=== PATIENT | female | born 1955 | race Caucasian/White ===

== ENCOUNTER 2019-03-27 11:42 | Emergency (ER) | payer OTHER, BC, SELFPAY ==
[2019-03-27 11:44] VITALS: BP 175/118; RESP 18; TEMP 36.4; O2SAT 99; BMI 19.3
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
[2019-03-27] MEDS: Morphine 4 MG/ML Syringe SC (11:56)
--- NOTE | 2019-03-27 12:12 | RAD_ITS ---
STUDY: X-RAY - PELVIS AND LEFT HIP REASON FOR EXAM: Hip pain and limited range of motion after a fall 4 days ago. TECHNIQUE: 2 views of the pelvis and hip. COMPARISON: None. FINDINGS: Normal visualized soft tissue structures. Normal bilateral iliac wings, sacroiliac joints and visualized sacrum. There is a chronic healed fracture deformity of the left inferior pubic ramus and left parasymphyseal bone. Normal pubic symphysis. Normal bilateral ischial tuberosities. Normal visualized femoral head. Normal acetabulum. There is mild joint space narrowing of the superior medial left hip joint. RAD/HIP, UNI W/ Pelvis 2-3 Views IMPRESSION: Chronic healed fracture deformity of the left obturator ring without demonstrated recent fracture. Mild left hip arthrosis. Electronically Signed: Guillermo Minor MD at 12:46 EST Tel , Service support ,
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
[2019-03-27 14:22] VITALS: BP 131/87; PULSE 61; RESP 18; O2SAT 95
--- NOTE | 2019-03-27 15:27 | ED.DEP ---
ED Disposition - Plan for ED Patient: Instructions: Pelvic Fracture Prescriptions: Oxycodone HCl/Acetaminophen [Percocet 5/325] 1 tab PO Q6H PRN PRN 3 Days #12 tab PRN Reason: Pain Prescription Printed Referrals: Lex Monterroso MD [STAFF PHYSICIAN] - (1-2 weeks)
[2019-03-27 15:31] VITALS: PULSE 65; RESP 18
== END 2019-03-27 15:32 | disposition home or self-care (01) ==
LOC: ED 12:08
PROVIDERS: Emergency Provider Emergency Medicine
DX: S32.592A Other specified fracture of left pubis, initial encounter for closed fracture (principal); W00.0XXA Fall on same level due to ice and snow, initial encounter; Y93.9 Activity, unspecified; Y92.89 Other specified places as the place of occurrence of the external cause; Y99.9 Unspecified external cause status; Z72.0 Tobacco use; R05 Cough
CPT/HCPCS: 72192; 73502; 96372; 99284

== ENCOUNTER 2019-08-28 09:18 | Emergency (ER) | payer MEDICARE, SELFPAY ==
[2019-08-28 09:19] VITALS: BP 153/101; PULSE 109; RESP 18; TEMP 37; O2SAT 96; BMI 19.5
--- NOTE | 2019-08-28 09:31 | RAD_ITS ---
STUDY: X-RAY - BILATERAL RIBS WITH CHEST REASON FOR EXAM: Female, 64 years old. INJURY RT SIDE RIB BRUISING AND PAIN TECHNIQUE - RIBS: 4 view(s) of the ribs. TECHNIQUE - CHEST: Single PA view of the chest. COMPARISON: None. FINDINGS - RIBS : Normal visualized ribs without a demonstrated fracture. FINDINGS - CHEST: Hyperinflation. Mild increased linear markings at the lung bases suggestive of scarring. Mild increased biapical markings suggestive of scarring. There is no demonstrated pleural abnormality. Normal size heart. Normal mediastinum and carlos. Normal visualized pulmonary arteries. There is atherosclerotic calcification of the aortic arch with tortuosity. There are diffuse degenerative changes of the visualized thoracic spine. Mild dextroscoliosis. Normal visualized ribs, clavicles, and shoulders. There is no demonstrated abnormality of the visualized soft tissue structures of the upper abdomen. RAD/Ribs Kaleb Min 4V w/PA Chest IMPRESSION: RIBS: Normal x-ray examination of the bilateral ribs. CHEST: Normal x-ray examination of the chest. Electronically Signed: Jj Huang, at 10:23 EDT , Service support ,
[2019-08-28] MEDS: oxyCODONE 5 MG Tablet PO (10:31)
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
== END 2019-08-28 10:49 | disposition home or self-care (01) ==
PROVIDERS: Emergency Provider Emergency Medicine
DX: S20.219A Contusion of unspecified front wall of thorax, initial encounter (principal); F17.200 Nicotine dependence, unspecified, uncomplicated; W17.89XA Other fall from one level to another, initial encounter; Y93.89 Activity, other specified; Y92.410 Unspecified street and highway as the place of occurrence of the external cause; Y99.8 Other external cause status
CPT/HCPCS: 71111; 99284

== ENCOUNTER → 2020-03-14 08:13 | Outpatient (CLI) | payer MEDICARE, SELFPAY ==
[2020-03-14 10:23] LABS: ALB/GLOB Ratio 1.1 RATIO (0.9-2.4); AST(SGOT) 16 U/L (15-37); Alanine Aminotransfer ALT/SGPT 25 U/L (13-56); Alkaline Phosphatase 87 U/L (45-117); Anion Gap 6 (5-15); BUN 10 mg/dL (7-18); BUN/Creat Ratio 13.3 RATIO (10-20); Calcium,Total 9.1 mg/dL (8.5-10.1); Chloride 108 mmol/L (98-107); Creatinine, Serum 0.75 mg/dL (0.55-1.02); EST Glomerular Filtration Rate 82 mL/min (>60); Est Glom Filt Rate - Afr Amer 99 mL/min (>60); Globulin 3.7 g/dL (2.2-4.2); Glucose 97 mg/dL (74-106); Protein, Total 7.7 g/dL (6.4-8.2); Sodium Level 141 mmol/L (136-145)
== END ==
PROVIDERS: PCP Family Medicine; Referring Provider Family Medicine; Visit Provider Family Medicine
DX: R73.01 Impaired fasting glucose (principal); Z13.220 Encounter for screening for lipoid disorders
CPT/HCPCS: 36415; 80053; 80061

== ENCOUNTER → 2020-11-28 08:43 | Outpatient (CLI) | payer MEDICARE, SELFPAY ==
[2020-11-28 10:02] LABS: Absolute Lymphocyte Count 2.67 X10^3/uL (0.83-4.51); Absolute Neutrophil Count 3.5 X10^3/uL (2.0-7.7); Basophil# 0.06 X10^3/uL; Basophil% 0.8 % (0-1); Eosinophil# 0.16 X10^3/uL; Eosinophils% 2.2 % (0-5); Hematocrit 43.5 % (37-47); Hemoglobin 14.5 g/dL (12.0-15.0); Lymphocyte # 2.67 X10^3/ul (0.83-4.51); Lymphocyte % 37.3 % (19-41); Mean Corp Hgb Conc 33.3 g/dL (32-36); Mean Corpuscular Hgb 31.7 pg (27.0-32.0); Mean Platelet Vol. 9.2 fl (6.2-12.0); Monocyte# 0.74 X10^3/uL; Monocyte% 10.3 % (0-10); NRBC Flagged by Analyzer 0 % (0-5); Neutrophil # 3.51 X10^3/uL (2.7-7.7); Neutrophil % 49.1 % (47-70); Platelet Count 269 K/mm3 (150-450); RBC Distribution Width CV 12.9 % (11.6-14.6); RBC Distribution Width SD 45.1 fl (35.1-43.9); Red Blood Count 4.58 M/mm3 (4.2-5.4); White Blood Count 7.2 K/mm3 (4.4-11.0)
[2020-11-28 10:37] LABS: ALB/GLOB Ratio 0.9 RATIO (0.9-2.4); AST(SGOT) 20 U/L (15-37); Alanine Aminotransfer ALT/SGPT 28 U/L (13-56); Albumin, Serum 3.8 g/dL (3.2-5.0); Alkaline Phosphatase 73 U/L (45-117); Anion Gap 5 (5-15); BUN 11 mg/dL (7-18); BUN/Creat Ratio 14.5 RATIO (10-20); Calcium,Total 9.2 mg/dL (8.5-10.1); Chloride 102 mmol/L (98-107); Cholesterol 209 mg/dL (200); Creatinine, Serum 0.76 mg/dL (0.55-1.02); EST Glomerular Filtration Rate 81 mL/min (>60); Est Glom Filt Rate - Afr Amer 98 mL/min (>60); Globulin 4.2 g/dL (2.2-4.2); Glucose 102 mg/dL (74-106); High Density Lipoprotein 66 mg/dL; Potassium 3.8 mmol/L (3.5-5.1); Sodium Level 137 mmol/L (136-145); Triglycerides 94 mg/dL; Very Low Density Lipoprotein 19 mg/dL (5-40)
== END ==
PROVIDERS: PCP Family Medicine; Referring Provider Family Medicine; Visit Provider Family Medicine
DX: Z79.899 Other long term (current) drug therapy (principal)
CPT/HCPCS: 36415; 80053; 80061; 85025

== ENCOUNTER 2022-03-02 12:00 | Emergency (ER) | payer MEDICARE, SELFPAY ==
[2022-03-02 12:01] VITALS: BP 104/88; PULSE 95; RESP 18; TEMP 36.6; O2SAT 94; BMI 22.8
--- NOTE | 2022-03-02 13:11 | CT_ITS ---
STUDY: CT BRAIN WITHOUT CONTRAST REASON FOR EXAM: Female, 66 years old. injury RADIATION DOSAGE (If Supplied By Facility): CTDIvol = ( 44.99 ) mGy, DLP = ( 812.98 ) mGycm TECHNIQUE: Transaxial CT imaging of the brain was performed without administration of intravenous contrast material. Individualized dose optimization techniques were used for this CT. COMPARISON: No relevant priors. FINDINGS: Normal soft tissue structures. Normal calvarium. Normal size ventricles and extra-axial spaces for the patient''s age. Normal white matter tracts of the cerebral hemispheres. Normal basal ganglia and thalami. Normal brainstem. Normal cerebellum. There is no intracranial hemorrhage. There are no findings of an acute ischemic infarction. Normal visualized paranasal sinuses. CT/Brain/Head without Contrast IMPRESSION: Normal unenhanced CT scan of the brain. Electronically Signed: Timi Alegre MD at 14:07 EST ,
--- NOTE | 2022-03-02 13:11 | RAD_ITS ---
STUDY: X-RAY - RIGHT KNEE REASON FOR EXAM: Female, 66 years old. injury TECHNIQUE: 4 view(s) of the knee. COMPARISON: None. FINDINGS: Normal visualized distal femur. Normal visualized proximal tibia and fibula. Normal proximal tibiofibular articulation. Normal medial femorotibial compartment. Normal lateral femorotibial compartment. Normal patellofemoral articulation. The soft tissue structures are unremarkable. RAD/Knee 4 or More Views IMPRESSION: Normal x-ray examination of the knee. Electronically Signed: Timi Alegre MD at 14:24 EST ,
--- NOTE | 2022-03-02 13:11 | RAD_ITS ---
STUDY: X-RAY - RIGHT SHOULDER REASON FOR EXAM: Female, 66 years old. injury TECHNIQUE: 2 view(s) of the shoulder. COMPARISON: None. FINDINGS: Normal glenohumeral articulation. Normal acromioclavicular joint. Normal acromion. Normal humeral head and visualized proximal humerus. The soft tissue structures are unremarkable. Normal visualized pulmonary apex. RAD/Shoulder min 2 Views IMPRESSION: Normal x-ray examination of the shoulder. Electronically Signed: Timi Alegre MD at 14:19 EST ,
--- NOTE | 2022-03-02 13:11 | RAD_ITS ---
STUDY: X-RAY - LEFT WRIST REASON FOR EXAM: Female, 66 years old. injury TECHNIQUE: 3 view(s) of the wrist were obtained. COMPARISON: None. FINDINGS: Normal visualized distal radius and ulna. Normal radiocarpal articulation. Normal distal radioulnar articulation. Normal carpal bones. Normal carpal articulations. Normal carpometacarpal articulation of the thumb. Normal second through fifth carpometacarpal articulations. Normal visualized metacarpal bones. The soft tissue structures are unremarkable. RAD/Wrist min 3 Views IMPRESSION: Normal x-ray examination of the wrist. Electronically Signed: Timi Alegre MD at 14:27 EST ,
[2022-03-02 14:00] VITALS: BP 134/78; PULSE 78; RESP 16; O2SAT 98
--- NOTE | 2022-03-02 14:00 | RAD_ITS ---
STUDY: X-RAY - RIGHT HAND REASON FOR EXAM: Female, 66 years old. injury TECHNIQUE: 3 view(s) of the hand. COMPARISON: None. FINDINGS: Normal radiocarpal articulation. Normal distal radioulnar joint. Normal visualized carpal bones. Normal carpal articulations There is degenerative arthrosis of the carpometacarpal (CMC) articulation of the thumb. Normal second through fifth carpometacarpal joints. Normal metacarpi. Normal metacarpophalangeal joint of the thumb. Normal interphalangeal joint of the thumb. Normal proximal and distal phalanges of the thumb. Normal metacarpophalangeal joints of the second through fifth fingers. Normal proximal and distal interphalangeal joints of the second through fifth fingers. Normal phalanges of the second through fifth fingers. The soft tissue structures are unremarkable. RAD/Hand Min 3 Views IMPRESSION: Normal x-ray examination of the hand. Electronically Signed: Timi Alegre MD at 14:22 [facility] ,
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
== END 2022-03-02 14:42 | disposition home or self-care (01) ==
PROVIDERS: Emergency Provider Emergency Medicine; PCP Family Medicine; Visit Provider Emergency Medicine
DX: S00.83XA Contusion of other part of head, initial encounter (principal); S60.221A Contusion of right hand, initial encounter; S80.01XA Contusion of right knee, initial encounter; S60.212A Contusion of left wrist, initial encounter; F17.210 Nicotine dependence, cigarettes, uncomplicated; W10.1XXA Fall (on)(from) sidewalk curb, initial encounter
CPT/HCPCS: 70450; 73030; 73110; 73130; 73564; 99282

== ENCOUNTER → 2023-05-13 | Outpatient (CLI) | payer MEDICARE, SELFPAY ==
--- NOTE | 2023-05-13 09:50 | RAD_ITS ---
INDICATION: sob EXAMINATION/TECHNIQUE: X-RAY - XR Chest 2 Views COMPARISON: No previous relevant examinations available for comparison.. FINDINGS: LIFE-SUPPORT AND LINES: 1. None HEART AND VESSELS: The cardiac silhouette, pulmonary vasculature have normal appearance. No evidence of congestive failure. LUNGS AND PLEURAL SPACES: Lungs are hyperexpanded. No infiltrate consolidation or effusion. No pulmonary mass is noted. MEDIASTINUM AND HILAR REGIONS: No masses adenopathy noted. No areas of calcification. Visualized upper airway is normal in position. BONY ELEMENTS: No acute bony changes noted. Diffuse chronic thoracic spondylosis. No acute fractures noted. RAD/Chest PA and Lateral IMPRESSION: 1. Pulmonary hyperexpansion. 2. No parenchymal infiltrate consolidation or effusion. 3. No evidence of congestive failure. Electronically Signed: Timi Padilla MD at 18:11 EST ,
[2023-05-13 10:28] LABS: Hematocrit 43.6 % (37-47); Hemoglobin 14.3 g/dL (12.0-15.0); Mean Corp Hgb Conc 32.8 g/dL (32-36); Mean Corpuscular Hgb 30.2 pg (27.0-32.0); Mean Corpuscular Volume 92.2 fL (81-99); Mean Platelet Vol. 9.2 fl (6.2-12.0); Platelet Count 291 K/mm3 (150-450); RBC Distribution Width SD 44.4 fl (35.1-43.9); Red Blood Count 4.73 M/mm3 (4.2-5.4); White Blood Count 7.1 K/mm3 (4.4-11.0)
[2023-05-13 11:20] LABS: Hemoglobin A1c 5.8 % (3.8-5.6)
[2023-05-13 11:43] LABS: AST(SGOT) 21 U/L (15-37); Alanine Aminotransfer ALT/SGPT 26 U/L (13-56); Albumin, Serum 3.9 g/dL (3.2-5.0); Alkaline Phosphatase 93 U/L (45-117); Anion Gap 6 (5-15); BUN 10 mg/dL (7-18); BUN/Creat Ratio 12.5 RATIO (10-20); Calcium,Total 9.6 mg/dL (8.5-10.1); Chloride 105 mmol/L (98-107); Cholesterol 185 mg/dL (200); EST Glomerular Filtration Rate 76 mL/min (>60); Est Glom Filt Rate - Afr Amer 92 mL/min (>60); Ferritin 120 ng/mL (8-252); Globulin 3.9 g/dL (2.2-4.2); Glucose 110 mg/dL (74-106); High Density Lipoprotein 59 mg/dL; Potassium 3.8 mmol/L (3.5-5.1); Protein, Total 7.8 g/dL (6.4-8.2); Sodium Level 137 mmol/L (136-145); Thyroid Stim Hormone (TSH) 0.29 uIU/mL (0.358-3.74); Triglycerides 79 mg/dL; Very Low Density Lipoprotein 16 mg/dL (5-40)
[2023-05-13 11:45] LABS: Microalbumin,Random Urine 7.4 mg/L (NO RANGE EST.)
== END | disposition home or self-care (01) ==
PROVIDERS: PCP Family Medicine; Referring Provider Family Medicine; Visit Provider Family Medicine
DX: R06.02 Shortness of breath (principal); E78.5 Hyperlipidemia, unspecified; I10 Essential (primary) hypertension; R73.01 Impaired fasting glucose
CPT/HCPCS: 36415; 71046; 80053; 80061; 82043; 82570; 82728; 83036; 84443; 85027; 94060; 94726; 94729

== ENCOUNTER → 2023-05-27 | Outpatient (CLI) | payer MEDICARE, SELFPAY ==
[2023-05-27 11:03] LABS: Free T3 3.1 pg/mL (2.18-3.98); Thyroid Stim Hormone (TSH) 0.22 uIU/mL (0.358-3.74)
== END | disposition home or self-care (01) ==
LOC: MTLAB 09:14
PROVIDERS: PCP Family Medicine; Referring Provider Family Medicine; Visit Provider Family Medicine
DX: R94.6 Abnormal results of thyroid function studies (principal)
CPT/HCPCS: 36415; 84443; 84481

== ENCOUNTER → 2023-06-24 | Outpatient (CLI) | payer MEDICARE, SELFPAY ==
[2023-06-26 06:09] LABS: Anti-Thyroglobulin AB < 1.0 IU/mL (0.0-0.9); Thyroglobulin, Serum Qt. 43.5 ng/mL (1.5-38.5); Thyroid Peroxidase AB < 9 IU/mL (0-34); Thyroid Stim Immunoglob <0.10 IU/L (0.00-0.55)
== END | disposition home or self-care (01) ==
PROVIDERS: PCP Family Medicine; Referring Provider Family Medicine; Visit Provider Family Medicine
DX: R79.89 Other specified abnormal findings of blood chemistry (principal)
CPT/HCPCS: 36415; 84432; 84445; 86376; 86800

== ENCOUNTER → 2024-08-24 | Outpatient (CLI) | payer MEDICARE, SELFPAY ==
[2024-08-24 15:40] LABS: Absolute Lymphocyte Count 1.76 X10^3/uL (0.83-4.51); Absolute Neutrophil Count 3.6 X10^3/uL (2.0-7.7); Basophil# 0.06 X10^3/uL; Eosinophil# 0.12 X10^3/uL; Hematocrit 44.5 % (37-47); Lymphocyte # 1.76 X10^3/ul (0.83-4.51); Lymphocyte % 28.9 % (19-41); Mean Corp Hgb Conc 33.7 g/dL (32-36); Mean Corpuscular Hgb 31.2 pg (27.0-32.0); Mean Corpuscular Volume 92.5 fL (81-99); Mean Platelet Vol. 9.9 fl (6.2-12.0); Monocyte# 0.57 X10^3/uL; Monocyte% 9.4 % (0-10); NRBC Flagged by Analyzer 0 % (0-5); Neutrophil # 3.55 X10^3/uL (2.7-7.7); Neutrophil % 58.4 % (47-70); Platelet Count 244 K/mm3 (150-450); RBC Distribution Width SD 44.4 fl (35.1-43.9); Red Blood Count 4.81 M/mm3 (4.2-5.4); White Blood Count 6.1 K/mm3 (4.4-11.0)
[2024-08-24 15:57] LABS: Hemoglobin A1c 5.8 % (<=5.6)
[2024-08-24 16:11] LABS: ALB/GLOB Ratio 1.2 RATIO (0.9-2.4); AST(SGOT) 30 U/L (<=31); Alanine Aminotransfer ALT/SGPT 25 U/L (<=34); Albumin, Serum 4.3 g/dL (3.4-4.8); Alkaline Phosphatase 90 U/L (35-104); Anion Gap 16 (5-15); BUN 9 mg/dL (4-19); BUN/Creat Ratio 11.8 RATIO (10-20); Calcium,Total 9.1 mg/dL (7.6-11.0); Chloride 96 mmol/L (98-108); Cholesterol 218 mg/dL (<=200); Creatinine, Serum 0.75 mg/dL (0.70-1.20); EST Glomerular Filtration Rate 85 (>60); Globulin 3.5 g/dL (2.2-4.2); Glucose 85 mg/dL (70-99); High Density Lipoprotein 54 mg/dL; Low Density Lipoprotein Calc. 143 mg/dL; Potassium 4.2 mmol/L (3.3-5.1); Protein, Total 7.8 g/dL (5.9-8.4); Sodium Level 133 mmol/L (133-145); Thyroid Stim Hormone (TSH) 0.306 uIU/mL (0.300-4.200); Total Bilirubin 0.32 mg/dL (0.00-1.30); Triglycerides 107 mg/dL; Very Low Density Lipoprotein 21 mg/dL (5-40); Vitamin D,25 Hydroxy 14.9 ng/mL (30-100); cholesterol:hdl ratio screen 4.03
--- OUTSIDE RECORDS SUMMARY | 2024-08-24 21:08 | XMS RPT_ITS | CCD ---
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 Name Role Phone Annie Salcedo Primary Care Unavailable Annie Salcedo Referring Unavailable Sky Alvarez Attending Unavailable Annie Salcedo Referring Unavailable Annie Salcedo Attending Unavailable Annie Salcedo Primary Care Unavailable Annie Salcedo Referring Unavailable Steve Fernandez Attending Unavailable Lex Nayak Attending Unavailable Annie Salcedo Referring Unavailable Annie Salcedo Attending Unavailable Annie Salcedo Primary Care Unavailable Radha Saravia Referring Unavailable Radha Saravia Attending Unavailable Annie Salcedo Primary Care Unavailable Medications Completed/Discontinued Medications Medication Drug Class(es) Dates Sig (Normalized) Sig (Original) acetaminophen 325 mg / oxyCODONE hydrochloride 5 mg oral tablet (6 sources) Opioid Agonist Start: 08-28-2019 End: 08-31-2019 take 1 tablet by mouth every six hours as needed Oxycodone-Acetamino phen Discontinued 1 TABLET PO EVERY 6 HOURS NEEDED 12 August 28, 2019 August 31, 2019 12:02am Start: 2019 End: 03-30-2019 take 1 tablet by mouth every six hours as needed Oxycodone-Acetaminophen Discontinued 1 TABLET PO EVERY 6 HOURS NEEDED 12 2019 March 30, 2019 1:08am Problems Active Problems Problem Classification Problem Date Documented Da te Episodic/Chronic E Codes: Fall (3 sources) Fall; Translations: [Unspecified fall, initial encounter] 03-10-2022 Episodic Other lower respiratory disease (1 source) Shortness of breath; Translations: [Shortness of breath] Onset: 10-19-2023 Episodic Superficial injury; contusion (15 sources) Contusion of hand; Translations: [Contusion of unspecified hand, initial encounter] 03-10-2022 Episodic Past or Other Problems Problem Classification Problem Date Documented Da te Episodic/Chronic Other screening for suspected conditions (not mental disorders or infectious disease) (1 source) Other specified abnormal findings of blood chemistry; Translations: [Other specified abnormal findings of blood chemistry] Onset: 06-29-2023 Episodic Results Test Name Value Interpretation Reference Range Facility Endocrinology Visit Reporton 10-07-2023 Endocrinology Visit Report [facility] [address] [place] [address] OFFICE VISIT Date of Service: 10/07/23 MR#: [id number] Acct: [id number] Name: SHAHBAZ SAMAYOA Rep #: [id number] : 1955 Provider: Adelso Frazier Age/Sex: 68/F Location[place] [facility] [place]: Signed Intake Vital Signs 03/02/22 12:01 09/21/23 16:17 10/07/23 09:59 Height 5 ft 8 in 5 ft 9 in 5 ft 9 in Weight: 121 lb BMI 17.9 BP 104/69 Blood Pressure Location Lt brachial Position Sitting Pulse 106 H Pulse Source Monitor Pulse Oximetry (%) 95 Oxygen Delivery Method room air Intake Visit Reasons: Thyroid Chief Complaint: Abnormal thyroid test Product Safety Professional Required: No Accompanied by: Self Is patient in pain?: No Allergies No Known Allergies Allergy (Verified 10/07/23 10:02) Medications ???Medication ???Instructions ???Recorded ???Confirmed ???Type escitalopram oxalate 5 mg tablet 5 mg PO QDAY 09/21/23 10/07/23 History quetiapine 25 mg tablet (Seroquel) 25 mg PO DAILY 09/21/23 10/07/23 History albuterol sulfate 90 mcg/actuation 2 puff inhalation Q6H PRN 10/07/23 10/07/23 History aerosol inhaler budesonide 160 mcg-glycopyr 9 2 inh inhalation BID 10/07/23 10/07/23 History mcg-formot 4.8 mcg/actuation HFA inhaler (Breztri Aerosphere) buspirone 10 mg tablet 10 mg PO BID 10/07/23 10/07/23 History lisinopril 20 mg tablet 20 mg PO DAILY 10/07/23 10/07/23 History Have you fallen in the past year?: Yes (Denies any fractures or breaks with fall. ) [facility] Medical History (Updated 10/11/23 @ 08:[address] Steve Fernandez MD) Abnormal results of thyroid function studies History of pelvic fracture Laceration of right thumb HTN (hypertension) Family History Father Diabetes Alcoholism Heart disease Respiratory disease Aunt Breast cancer Hypertension Mental disorder Son Alcoholism Skin cancer (melanoma) Mental disorder Social History (Updated 10/07/23 @ 10:07 by Nicole Pacheco) Smoking Status: Current every day smoker tobacco type: cigarettes Smoking packs per day: 1 Smoking cigarettes per day: 20.0 Years smoked: 50 Smoking pack-years: 50.00 Tobacco: How many years used: 50 second hand exposure: No alcohol intake: current alcohol intake frequency: holidays/special occasions only substance use type: marijuana and other details: Using Medical Marijuana few times a week what type of physical activity do you participate in: walking HPI HPI Chief Complaint: Abnormal thyroid test Details: SHAHBAZ SAMAYOA, is a 68 F who presents to the office today for evaluation and management of thyroid. She has history of HTN, lung disease, 40 pack year smoking and diarrhea. TSH 0.22 and 0.29 Free T3 3.1 Negative antibodies She reports cold intolerance and hair loss. She is underweight. She states she is under a lot of stress. Her is dying in hospice. Her son is mentally ill and she has a restraining order against him. She will need to move to be safe from him. Exam Const General: cooperative, healthy appearing, comfortable, no acute distress, well developed and not cushingoid Nutritional Appearance: well nourished Orientation: alert, awake and oriented x3 HENMT Head: normal to inspection Ears: hearing grossly normal bilaterally Nose: external nose normal Mouth: oral mucosae normal Eyes General: appearance normal, both eyes and all related structures Alignment and Position: alignment normal Periorbital: periorbital findings normal Eyelids: eyelids normal Conjunctivae: conjunctivae normal Neck Neck: normal visual inspection Neck mass: No Thyroid: thyroid normal (top normal size) Lymphatic: no lymphadenopathy noted Chest Chest palpation inspection: normal inspection of the chest Resp Effort Inspection: normal respiratory effort, able to speak in complete sentences, symmetric chest movement, no audible wheezes and no cough Cardio Rate: regular rate Rhythm: regular rhythm Pulses: posterior tibial pulses present GI Inspection: normal to inspection Skin General: no rashes or lesions noted Neuro General: patient alert, patient awake and patient oriented x3 Cranial Nerves: CN's II-XI intact bilaterally Cognition: normal cognition Speech: speech normal Gait: normal gait Motor: muscle tone normal throughout Extrem General: no edema Psych Appearance: grossly normal Mental Status: mental status grossly normal Mood: congruent mood Affect: normal affect Speech and Movement: speech and movement normal Attitude: cooperative Thought Process: normal Thought Content: normal Judgment: judgment good Coding Level of Care Code Off vis,new,level 4 Diagnoses Abnormal results of thyroid fu (more content not included)... Normal [facility] Urgent Care Visit Reporton 0 09-21-2023 Urgent Care Visit Report [facility] [address], [address] [place] [address] OFFICE VISIT Date of Service: 09/21/23 MR#: [id number] Acct: [id number] Name: SHAHBAZ SAMAYOA Rep #: [id number] : 1955 Provider: CHYNA Bae Age/Sex: 68/F Location: [facility] Status: Signed Intake Vital Signs 03/02/22 12:01 09/21/23 16:17 Height 5 ft 8 in 5 ft 9 in Weight: 125 lb BMI 18.4 BP 128/86 H Blood Pressure Location Lt brachial Position Sitting Respiration 16 Pulse 105 H Pulse Source Monitor Temp 97.5 F L Temp Source Temporal Pulse Oximetry (%) 97 Oxygen Delivery Method room air Intake Visit Reasons: R THUMB LACERATION/CUT ON GLASS Chief Complaint: RT THUMB LAC CUT ON GLASS Product Safety Professional Required: No Accompanied by: Son Is patient in pain?: Yes Allergies No Known Allergies Allergy (Verified 09/21/23 16:18) Medications ???Medication ???Instructions ???Recorded ???Confirmed ???Type buspirone 7.5 mg tablet 7.5 mg PO BID 09/21/23 09/21/23 History escitalopram oxalate 5 mg tablet 5 mg PO QDAY 09/21/23 09/21/23 History lisinopril 20 1 tab PO QDAY 09/21/23 09/21/23 History mg-hydrochlorothiazide 12.5 mg tablet quetiapine 25 mg tablet (Seroquel) 25 mg PO DAILY 09/21/23 09/21/23 History Have you fallen in the past year?: No [facility] Medical History (Updated 09/21/23 @ 16:44 by CHYNA Paulino) Laceration of right thumb HTN (hypertension) Family History Father Diabetes Alcoholism Heart disease Respiratory disease Aunt Breast cancer Hypertension Mental disorder Son Alcoholism Skin cancer (melanoma) Mental disorder Social History Smoking Status: Current every day smoker tobacco type: cigarettes alcohol intake: never substance use type: does not use what type of physical activity do you participate in: walking HPI HPI Chief Complaint: RT THUMB LAC CUT ON GLASS Details: SHAHBAZ SAMAYOA, is a 68 F who presents to the office today for initial evaluation status post right thumb avulsion laceration with a piece of broken glass at home immediately prior to arrival here today. No loss of sensation or strength or function at injury site or distal to. Unknown last Td. Dsjhr-vaco-rfkyidjk. No nmpv-sdc-zhlagnr products taken to assist. No other associated symptoms and no other alleviating/aggravating factors. ROS Const Constitutional: No other (As above) Exam Const General: cooperative, healthy appearing and no acute distress Orientation: alert and awake Resp Effort Inspection: normal respiratory effort and able to speak in complete sentences Cardio Rate: tachycardic Pulses: radial pulses present Skin General: no rashes or lesions noted Trauma: laceration (1 cm C-shaped dermal depth realigned in proper anatomical position) Other: After site cleansed with Hibiclens and saline then pressure dressing applied to same which patient tolerated well Neuro General: patient alert and patient awake Cognition: normal cognition Speech: speech normal Extrem General: normal to inspection (Except as noted in skin exam above) Psych Appearance: grossly normal Mental Status: mental status grossly normal Mood: congruent mood Affect: normal affect Speech and Movement: speech and movement normal Attitude: cooperative Immunizations Boostrix Tdap 2.5 Lf unit-8 mcg-5 Lf/0.5 mL intramuscular syringe Performing Provider: Lex CLEMENTE PA [facility]forming Location[facility] Administered by: Mago Tang MA on 09/21/23 16:36 Dose Route Admin Location Dispensed Lot Number Expiration Date ND Man ufacturer 0.5 mL IM Right Deltoid 0.5 mL [id number] 04/22/25 [id number] [employer] VIS Given Date VIS Provided VIS Publication Date 09/21/23 Single Vaccine 20 Eligibility Eligibility Date Funding Source None Coding Level of Care Code Off vis,new,level 2 Diagnoses Laceration of right thumb S61.011A Assessment and Plan Assessment and Plan (1) Laceration of right thumb: Status: Acute Plan: Wound realignment and pressure dressing as described above; educated on loosening pressure dressing after couple of hours to ensure stability. Daily wound care as instructed today. Tdap updated today. Follow-up with PCP in 5 to 7 days should symptoms not improve, sooner should symptoms only worsen or any other concerns develop. Patient and family member both state acknowledging understanding all the above. This note was generated with [employer] dictation software. It may contain incorrect words, spelling, and punctuation that were not noted in checking the note before signing. Orders: Orders Tdap Immunization Today Z23 - Enc (more content not included)... Normal [facility] Thyroglobulin w/Anti-TG ABon 06-26-2023 Anti-TG AB < 1.0 Normal 0.0-0.9 [facility] Comment on above: Order Comment: Order Date: 05/04/23 Order Info: [id number] - A1C Result Comment: Thyr oglobulin Antibody measured by Dopios Uday Methodology It should be noted that the presence of thyroglobulin antibodies may not be pathogenic nor diagnostic, especially at very low levels. The assay cooling tower technician has found that four percent of individuals without evidence of thyroid disease or autoimmunity will have positive TgAb levels up to 4 IU/mL. Performed By: #### L 501.9985, L502.0250, L503.6550, L500.4050, L501.9520, L500.4100, L100.0500 #### [facility] [place], [place], [id number] THYROGLOB QUANT 43.5 ng/mL High 1.5-38.5 [facility] Comment on above: Order Comment: Order Date: 05/04/23 Order Info: [id number] - A1C Result Comment: Acco rding to the National Academy of Clinical Biochemistry, the reference interval for Thyroglobulin (TG) should be related to euthyroid patients and not for patients who underwent thyroidectomy. TG reference intervals for these patients depend on the residual mass of the thyroid tissue left after surgery. Establishing a post-operative baseline is recommended. The assay limit of quantitation is 0.1 ng/mL Thyroglobulin measured by Alexandre Uday Immunometric Assay Performed By: #### L 501.9985, L502.0250, L503.6550, L500.4050, L501.9520, L500.4100, L100.0500 #### [facility] [address] [place], [address] Thyroid Peroxidase ABon 04-0 THYR PEROX AB < 9 Normal 0-34 [facility] Comment on above: Order Comment: Order Date: 05/04/23 Order Info: [id number] - A1C Result Comment: Perf ormed at: - [facility] [address] [id number] Fence Post Driver: Lauro Chao MD, Phone: [phone] Performed at: - [facility] [address] [id number] Fence Post Driver: Jona Alexander PhD, Phone: [phone] Performed By: #### L 501.9985, L502.0250, L503.6550, L500.4050, L501.9520, L500.4100, L100.0500 #### [facility] [address] [place], [address] Thyroid Stim Immunoglobon - THY STIM IMMUNO <0.10 Normal 0.00-0.55 [facility] Comment on above: Order Comment: Order Date: 05/04/23 Order Info: [id number] - A1C Performed By: #### L 501.9985, L502.0250, L503.6550, L500.4050, L501.9520, L500.4100, L100.0500 #### [facility] [place], [address] No Panel InformationOrdered By: Annie Salcedo on 06-24-2023 Thyroglobulin Antibody < 1.0 IU/mL 0.0-0.9 [facility] Comment on above: Thyroglobulin Antibo dy measured by Alexandre CoulterMethodologyIt should be noted that the presence of thyroglobulinantibodies may not be pathogenic nor diagnostic, especiallyat very low levels. The assay cooling tower technician has found thatfour percent of individuals without evidence of thyroiddisease or autoimmunity will have positive TgAb levels upto 4 IU/mL. Thyroglobulin Level 43.5 ng/mL 1.5-38.5 [facility] Comment on above: According to the [facility] Academy of Clinical Biochemistry,the reference interval for Thyroglobulin (TG) should berelated to euthyroid patients and not for patients whounderwent thyroidectomy. TG reference intervals for thesepatients depend on the residual mass of the thyroid tissueleft after surgery. Establishing a post-operative baselineis recommended. The assay limit of quantitation is 0.1ng/mLThyroglobulin measured by Alexandre [place] ImmunometricAssay Serum or plasma thyroperoxid ase antibody assay (units/volume)Ordered By: Annie Salcedo on 06-24-2023 TPO Ab Qn [IU]/mL 0-34 [facility] Comment on above: Performed at: [address] [id number] Director: Lauro Chao MD, Phone: [phone] at: - [facility] [id number] Director: Jona Alexander PhD, Phone: [phone] Thyroid stimulating immunogl obulins detectionOrdered By: Annie Salcedo on 06-24-2023 Thyroid stimulating immunoglobulins Ql (S) <0.10 IU/L 0.00-0.55 [facility] Free T3on 05-27-2023 Free T3 [Mass/Vol] 3.1 pg/mL Normal 2.18-3.98 [facility] Comment on above: Order Comment: Order Date: 05/04/23 Order Info: [id number] - A1C Performed By: #### L 501.9985, L502.0250, L503.6550, L500.4050, L501.9520, L500.4100, L100.0500 #### [facility] [address] [place], [place], [address] No Panel InformationOrdered By: Radha Saravia on 05-27-2023 Free Triiodothyronine (T3) pg/dL 3.1 pg/mL 2.18-3.98 [facility] Serum or plasma thyroid stim ulating hormone (TSH) measurement (units/volume)Ordered By: Radha Saravia on 05-27-2023 TSH Qn 0.22 uIU/mL 0.358-3.74 [facility] Thyroid Stim Hormone (TSH)on 05-27-2023 TSH 0.22 uIU/mL Low 0.358-3.74 [facility] Comment on above: Order Comment: Order Date: 05/04/23 Order Info: [id number] - A1C Performed By: #### L 501.9985, L502.0250, L503.6550, L500.4050, L501.9520, L500.4100, L100.0500 #### [facility] [address] [place], [place], [address] Basophil percentageOrdered B y: Annie Salcedo on 05-13-2023 Bilirubin [Mass/Vol] 0.30 mg/dL 0.20-1.00 [facility] Comment on above: For patients on eltr ombopag therapy, use of Dimension [place] TBIL is not recommended. Chloride [Moles/Vol] 105 mmol/L 98-107 [facility] Cholesterol [Mass/Vol] 185 mg/dL <200 [facility] Comment on above: <200 mg/dL Desirable 200-240 mg/dL Borderline >240 mg/dL High Risk Glucose [Mass/Vol] 110 mg/dL 74-106 [facility] Comment on above: Fasting Glucose resu lt from 100 to 125 mg/dL suggests IMPAIRED HOMEOSTASIS per A.D.A. criteria. Hemoglobin (Bld) [Mass/Vol] 14.3 g/dL 12.0-15.0 [facility] Potassium [Moles/Vol] 3.8 mmol/L 3.5-5.1 [facility] Protein [Mass/Vol] 7.8 g/dL 6.4-8.2 [facility] Sodium [Moles/Vol] 137 mmol/L 136-145 [facility] Triglyceride [Mass/Vol] 79 mg/dL <199 [facility] Comment on above: The drugs N-Acetylcy steine and Metamizole may falsely depress this assay.Serum Triglycerides Reference Interval Normal <150 mg/dL Borderline high 150 - 199 mg/dL High 200 - 499 mg/dL Very High > or = 500 mg/dL WBC (Bld) [#/Vol] 7.1 10*3/uL 4.4-11.0 [facility] CBC-Complete Blood Cnt No Di ffon 05-13-2023 Erythrocyte distribution width (RBC) [Ratio] 13.0 % Normal 11.6-14.6 [facility] Comment on above: Order Comment: Order Date: 05/04/23 Order Info: [id number] - CBC Performed By: #### L 501.9985, L502.0250, L503.6550, L500.4050, L501.9520, L500.4100, L100.0500 #### [facility] [address] [place], [address] (116) Hematocrit (Bld) [Volume fraction] 43.6 % Normal 37-47 [facility] Comment on above: Order Comment: Order Date: 05/04/23 Order Info: [id number] - CBC Performed By: #### L 501.9985, L502.0250, L503.6550, L500.4050, L501.9520, L500.4100, L100.0500 #### [facility] [address] [place], [address] Hemoglobin (Bld) [Mass/Vol] 14.3 g/dL Normal 12.0-15.0 [facility] Comment on above: Order Comment: Order Date: 05/04/23 Order Info: [id number] - CBC Performed By: #### L 501.9985, L502.0250, L503.6550, L500.4050, L501.9520, L500.4100, L100.0500 #### [facility] [address] [place], [address] MCH (RBC) [Entitic mass] 30.2 pg Normal 27.0-32.0 [facility] Comment on above: Order Comment: Order Date: 05/04/23 Order Info: [id number] - CBC Performed By: #### L 501.9985, L502.0250, L503.6550, L500.4050, L501.9520, L500.4100, L100.0500 #### [facility] [address] [place], [address] MCHC (RBC) [Mass/Vol] 32.8 g/dL Normal 32-36 [facility] Comment on above: Order Comment: Order Date: 05/04/23 Order Info: [id number] - CBC Performed By: #### L 501.9985, L502.0250, L503.6550, L500.4050, L501.9520, L500.4100, L100.0500 #### [facility] [address] [place], [address] MCV (RBC) [Entitic vol] 92.2 fL Normal 81-99 [facility] Comment on above: Order Comment: Order Date: 05/04/23 Order Info: [id number] - CBC Performed By: #### L 501.9985, L502.0250, L503.6550, L500.4050, L501.9520, L500.4100, L100.0500 #### [facility] [address] [place], [place], [id number] (507) Platelet mean volume (Bld) [Entitic vol] 9.2 fL Normal 6.2-12.0 [facility] Comment on above: Order Comment: Order Date: 05/04/23 Order Info: [id number] - CBC Performed By: #### L 501.9985, L502.0250, L503.6550, L500.4050, L501.9520, L500.4100, L100.0500 #### [facility] [address] [place], [address] Platelets (Bld) [#/Vol] 291 10*3/uL Normal 150-450 [facility] Comment on above: Order Comment: Order Date: 05/04/23 Order Info: [id number] - CBC Performed By: #### L 501.9985, L502.0250, L503.6550, L500.4050, L501.9520, L500.4100, L100.0500 #### [facility] [address] [place], [address] RBC (Bld) [#/Vol] 4.73 10*6/uL Normal 4.2-5.4 [facility] Comment on above: Order Comment: Order Date: 05/04/23 Order Info: [id number] - CBC Performed By: #### L 501.9985, L502.0250, L503.6550, L500.4050, L501.9520, L500.4100, L100.0500 #### [facility] [address] [place], [address] RDW SD 44.4 fl High 35.1-43.9 [facility] Comment on above: Order Comment: Order Date: 05/04/23 Order Info: [id number] - CBC Performed By: #### L 501.9985, L502.0250, L503.6550, L500.4050, L501.9520, L500.4100, L100.0500 #### [facility] [address] [place], [address] WBC (Bld) [#/Vol] 7.1 10*3/uL Normal 4.4-11.0 [facility] Comment on above: Order Comment: Order Date: 05/04/23 Order Info: [id number] - CBC Performed By: #### L 501.9985, L502.0250, L503.6550, L500.4050, L501.9520, L500.4100, L100.0500 #### [facility] [address] [place], [address] Chest PA and Lateralon 05-13 Chest PA and Lateral [facility] [address] [place] [address] Chest PA and Lateral MR#: [id number] Acct: [id number] Name: SHAHBAZ SAMAYOA Rep #: [id number] : 1955 F 68 From: Timi Bae PCP: Annie Salcedo DO Status: REG CLI Study: Chest PA and Lateral Date of Exam: 05/13/23 Exam# [id number] Ordering Dr: Annie Salcedo DO [id number] INDICATION: sob EXAMINATION/TECHNIQUE: X-RAY - XR Chest 2 Views COMPARISON: No previous relevant examinations available for comparison.. FINDINGS: LIFE-SUPPORT AND LINES: 1. None HEART AND VESSELS: The cardiac silhouette, pulmonary vasculature have normal appearance. No evidence of congestive failure. LUNGS AND PLEURAL SPACES: Lungs are hyperexpanded. No infiltrate consolidation or effusion. No pulmonary mass is noted. MEDIASTINUM AND HILAR REGIONS: No masses adenopathy noted. No areas of calcification. Visualized upper airway is normal in position. BONY ELEMENTS: No acute bony changes noted. Diffuse chronic thoracic spondylosis. No acute fractures noted. RAD/Chest PA and Lateral IMPRESSION: 1. Pulmonary hyperexpansion. 2. No parenchymal infiltrate consolidation or effusion. 3. No evidence of congestive failure. Electronically Signed: Timi Padilla MD at 18:11 EST , CC: Annie Salcedo DO Manager Interventional: Signed Normal [facility] Comprehensive Metabolic Prof ilon 05-13-2023 Albumin [Mass/Vol] 3.9 g/dL Normal 3.2-5.0 [facility] Comment on above: Order Comment: Order Date: 05/04/23 Order Info: [id number] - CMP Order Info: - LIPID Order Info: [id number] - TSH Order Info: [id number] - RACHAEL Performed By: #### L 501.9985, L502.0250, L503.6550, L500.4050, L501.9520, L500.4100, L100.0500 #### [facility] [address] [place], [address] Albumin/Globulin [Mass ratio] 1.0 {ratio} Normal 0.9-2.4 [facility] Comment on above: Order Comment: Order Date: 05/04/23 Order Info: [id number] - CMP Order Info: - LIPID Order Info: [id number] - TSH Order Info: 4 - RACHAEL Performed By: #### L 501.9985, L502.0250, L503.6550, L500.4050, L501.9520, L500.4100, L100.0500 #### [facility] [address] [place], [address] ALK P 93 U/L Normal 45-117 [facility] Comment on above: Order Comment: Order Date: 05/04/23 Order Info: 0786 - CMP Order Info: [id number] - LIPID Order Info: 3 - TSH Order Info: 4 - RACHAEL Performed By: #### L 501.9985, L502.0250, L503.6550, L500.4050, L501.9520, L500.4100, L100.0500 #### [facility] [address] [place], [place], [id number] ALT [Catalytic activity/Vol] 26 U/L Normal 13-56 [facility] Comment on above: Order Comment: Order Date: 05/04/23 Order Info: 0786-1 - CMP Order Info: [id number] - LIPID Order Info: 3015-05 - TSH Order Info: 2275-06 - RACHAEL Performed By: #### L 501.9985, L502.0250, L503.6550, L500.4050, L501.9520, L500.4100, L100.0500 #### [facility] [address] [place], [place], [id number] AST [Catalytic activity/Vol] 21 U/L Normal 15-37 [facility] Comment on above: Order Comment: Order Date: 05/04/23 Order Info: 785-03 - CMP Order Info: - LIPID Order Info: 3015-05 - TSH Order Info: 2275-06 - RACHAEL Performed By: #### L 501.9985, L502.0250, L503.6550, L500.4050, L501.9520, L500.4100, L100.0500 #### [facility] [address] [place], [place], [address] Bilirubin [Mass/Vol] 0.30 mg/dL Normal 0.20-1.00 [facility] Comment on above: Order Comment: Order Date: 05/04/23 Order Info: 07- - CMP Order Info: - LIPID Order Info: 3015-05 - TSH Order Info: 4 - RACHAEL Result Comment: For patients on eltrombopag therapy, use of Dimension [place] TBIL is not recommended. Performed By: #### L 501.9985, L502.0250, L503.6550, L500.4050, L501.9520, L500.4100, L100.0500 #### [facility] [address] [place], [address] BUN/CRE 12.5 RATIO Normal 10-20 [facility] Comment on above: Order Comment: Order Date: 05/04/23 Order Info: 0786- - CMP Order Info: [id number] - LIPID Order Info: 3015-3 - TSH Order Info: 2275-4 - RACHAEL Performed By: #### L 501.9985, L502.0250, L503.6550, L500.4050, L501.9520, L500.4100, L100.0500 #### [facility] [address] [place], [address] CA,Total 9.6 mg/dL Normal 8.5-10.1 [facility] Comment on above: Order Comment: Order Date: 05/04/23 Order Info: 785-03 - CMP Order Info: - LIPID Order Info: [id number] - TSH Order Info: 4 - RACHAEL Performed By: #### L 501.9985, L502.0250, L503.6550, L500.4050, L501.9520, L500.4100, L100.0500 #### [facility] [address] [place], [address] Chloride [Moles/Vol] 105 mmol/L Normal 98-107 [facility] Comment on above: Order Comment: Order Date: 05/04/23 Order Info: 07 - CMP Order Info: [id number] - LIPID Order Info: 3015-3 - TSH Order Info: 2276-4 - RACHAEL Performed By: #### L 501.9985, L502.0250, L503.6550, L500.4050, L501.9520, L500.4100, L100.0500 #### [facility] [address] [place], [address] CO2 [Moles/Vol] 26.0 mmol/L Normal 21.0-32.0 [facility] Comment on above: Order Comment: Order Date: 05/04/23 Order Info: 785-03 - CMP Order Info: - LIPID Order Info: 3015-05 - TSH Order Info: 2275-06 - RACHAEL Performed By: #### L 501.9985, L502.0250, L503.6550, L500.4050, L501.9520, L500.4100, L100.0500 #### [facility] [address] [place], [address] Creatinine [Mass/Vol] 0.80 mg/dL Normal 0.55-1.02 [facility] Comment on above: Order Comment: Order Date: 05/04/23 Order Info: 785-03 - CMP Order Info: - LIPID Order Info: 3015-05 - TSH Order Info: 2275-06 - RACHAEL Result Comment: The validity of the calculated GFR GFRAA in patients over 70 years has not been determined. Clinical correlation is essential. Performed By: #### L 501.9985, L502.0250, L503.6550, L500.4050, L501.9520, L500.4100, L100.0500 #### [facility] [address] [place], [place], [address] EST GFR - AA 92 mL/min Normal >60 [facility] Comment on above: Order Comment: Order Date: 05/04/23 Order Info: 785-03 - CMP Order Info: [id number] - LIPID Order Info: 3015-05 - TSH Order Info: 2275-06 - RACHAEL Result Comment: Afri can Israeli GFR Calc Performed By: #### L 501.9985, L502.0250, L503.6550, L500.4050, L501.9520, L500.4100, L100.0500 #### [facility] [address] [place], [address] GAP 6 Normal 5-15 [facility] Comment on above: Order Comment: Order Date: 05/04/23 Order Info: 785-03 - CMP Order Info: - LIPID Order Info: 3015-05 - TSH Order Info: 2275-06 - RACHAEL Performed By: #### L 501.9985, L502.0250, L503.6550, L500.4050, L501.9520, L500.4100, L100.0500 #### [facility] [address] [place], [address] GFR/1.73 sq M.predicted among non-blacks MDRD (S/P/Bld) [Vol rate/Area] 76 mL/min/{1.73_m2} Normal >60 [facility] Comment on above: Order Comment: Order Date: 05/04/23 Order Info: 785-03 - CMP Order Info: - LIPID Order Info: 3015-05 - TSH Order Info: 2275-06 - RACHAEL Result Comment: Non- GFR Calc Performed By: #### L 501.9985, L502.0250, L503.6550, L500.4050, L501.9520, L500.4100, L100.0500 #### [facility] [address] [place], [address] Globulin (S) [Mass/Vol] 3.9 g/dL Normal 2.2-4.2 [facility] Comment on above: Order Comment: Order Date: 05/04/23 Order Info: 785-03 - CMP Order Info: - LIPID Order Info: 3015-05 - TSH Order Info: 2275-06 - RACHAEL Performed By: #### L 501.9985, L502.0250, L503.6550, L500.4050, L501.9520, L500.4100, L100.0500 #### [facility] [address] [place], [address] Glucose [Mass/Vol] 110 mg/dL High 74-106 [facility] Comment on above: Order Comment: Order Date: 05/04/23 Order Info: 785-03 - CMP Order Info: - LIPID Order Info: 3015-05 - TSH Order Info: 2275-06 - RACHAEL Result Comment: Fast ing Glucose result from 100 to 125 mg/dL suggests IMPAIRED HOMEOSTASIS per A.D.A. criteria. Performed By: #### L 501.9985, L502.0250, L503.6550, L500.4050, L501.9520, L500.4100, L100.0500 #### [facility] [address] [place], [address] Potassium [Moles/Vol] 3.8 mmol/L Normal 3.5-5.1 [facility] Comment on above: Order Comment: Order Date: 05/04/23 Order Info: 785-03 - CMP Order Info: - LIPID Order Info: 3015-05 - TSH Order Info: 2275-06 - RACHAEL Performed By: #### L 501.9985, L502.0250, L503.6550, L500.4050, L501.9520, L500.4100, L100.0500 #### [facility] [address] [place], [address] Sodium [Moles/Vol] 137 mmol/L Normal 136-145 [facility] Comment on above: Order Comment: Order Date: 05/04/23 Order Info: 785-03 - CMP Order Info: - LIPID Order Info: 3015-05 - TSH Order Info: 2275-06 - RACHAEL Performed By: #### L 501.9985, L502.0250, L503.6550, L500.4050, L501.9520, L500.4100, L100.0500 #### [facility] [address] [place], [address] T PROT 7.8 g/dL Normal 6.4-8.2 [facility] Comment on above: Order Comment: Order Date: 05/04/23 Order Info: 785-03 - CMP Order Info: - LIPID Order Info: 3015-05 - TSH Order Info: 2275-06 - RACHAEL Performed By: #### L 501.9985, L502.0250, L503.6550, L500.4050, L501.9520, L500.4100, L100.0500 #### [facility] [address] [facility] [place], [place], [id number] Urea nitrogen [Mass/Vol] 10 mg/dL Normal 7-18 [facility] Comment on above: Order Comment: Order Date: 05/04/23 Order Info: 0786 - CMP Order Info: [id number] - LIPID Order Info: 3015-05 - TSH Order Info: 2275-06 - RACHAEL Performed By: #### L 501.9985, L502.0250, L503.6550, L500.4050, L501.9520, L500.4100, L100.0500 #### [facility] [address] [facility] [place], [place], [address] Determination of erythrocyte mean corpuscular volume (MCV)Ordered By: Annie Salcedo on 05-13-2023 MCV (RBC) [Entitic vol] 92.2 fL 81-99 [facility] Erythrocyte distribution wid th ratioOrdered By: Annie Salcedo on 05-13-2023 Erythrocyte distribution width (RBC) [Ratio] 13.0 % 11.6-14.6 [facility] Erythrocyte distribution wid th standard deviationOrdered By: Annie Salcedo on 05-13-2023 Erythrocyte distribution width (RBC) [Entitic vol] 44.4 fL 35.1-43.9 [facility] Ferritinon 05-13-2023 Ferritin [Mass/Vol] 120 ng/mL Normal 8-252 [facility] Comment on above: Order Comment: Order Date: 05/04/23 Order Info: 0786- - CMP Order Info: [id number] - LIPID Order Info: 3015-05 - TSH Order Info: 2275-06 - RACHAEL Performed By: #### L 501.9985, L502.0250, L503.6550, L500.4050, L501.9520, L500.4100, L100.0500 #### [facility] [address] [place], [place], [address] Hematocrit Auto (Bld) [Volum e fraction]Ordered By: Annie Salcedo on 05-13-2023 Hematocrit (Bld) [Volume fraction] 43.6 % 37-47 [facility] Hemoglobin A1con 05-13-2023 HbA1c (Bld) [Mass fraction] 5.8 % High 3.8-5.6 [facility] Comment on above: Order Comment: Order Date: 05/04/23 Order Info: [id number] - A1C Result Comment: Norm al < 5.7 % Prediabetic 5.7 - 6.4 % Diabetic >or= 6.5 % Please note range changes. Performed By: #### L 501.9985, L502.0250, L503.6550, L500.4050, L501.9520, L500.4100, L100.0500 #### [facility] [address] [place], [address] Laboratory - Chemistry and C hemistry - challengeOrdered By: Annie Salcedo on 05-13-2023 Albumin/Globulin [Mass ratio] 1.0 {ratio} 0.9-2.4 [facility] ALP [Catalytic activity/Vol] 93 U/L 45-117 [facility] ALT [Catalytic activity/Vol] 26 U/L 13-56 [facility] Cholesterol in HDL [Mass/Vol] 59 mg/dL >40 [facility] Comment on above: The drugs N-Acetylcy steine and Metamizole may falsely depress this assay. Reference Range HDL <40 mg/dL Low HDL Cholesterol HDL >or= 60 mg/dL High HDL Cholesterol Cholesterol in LDL [Mass/Vol] 110 mg/dL 0-130 [facility] CO2 [Moles/Vol] 26.0 mmol/L 21.0-32.0 [facility] Ferritin [Mass/Vol] 120 ng/mL 8-252 [facility] Globulin (S) [Mass/Vol] 3.9 g/dL 2.2-4.2 [facility] Urea nitrogen/Creatinine [Mass ratio] 12.5 mg/mg 10-20 [facility] - Hematology and Cell countsOrdered By: Annie Salcedo on 05-13-2023 MCH (RBC) [Entitic mass] 30.2 pg 27.0-32.0 [facility] MCHC (RBC) [Mass/Vol] 32.8 g/dL 32-36 [facility] Platelet mean volume (Bld) [Entitic vol] 9.2 fL 6.2-12.0 [facility] Platelets (Bld) [#/Vol] 291 10*3/uL 150-450 [facility] Lipid Profileon 05-13-2023 Cholesterol [Mass/Vol] 185 mg/dL Normal 200 [facility] Comment on above: Order Comment: Order Date: 05/04/23 Order Info: 0786-1 - CMP Order Info: [id number] - LIPID Order Info: 3013 - TSH Order Info: 2275-06 - RACHAEL Result Comment: <200 mg/dL Desirable 200-240 mg/dL Borderline >240 mg/dL High Risk Performed By: #### L 501.9985, L502.0250, L503.6550, L500.4050, L501.9520, L500.4100, L100.0500 #### [facility] [address] [place], [address] Cholesterol in HDL [Mass/Vol] 59 mg/dL Normal [facility] Comment on above: Order Comment: Order Date: 05/04/23 Order Info: 0786-1 - CMP Order Info: [id number] - LIPID Order Info: 3 - TSH Order Info: 4 - RACHAEL Result Comment: The drugs N-Acetylcysteine and Metamizole may falsely depress this assay. Reference Range HDL <40 mg/dL Low HDL Cholesterol HDL >or= 60 mg/dL High HDL Cholesterol Performed By: #### L 501.9985, L502.0250, L503.6550, L500.4050, L501.9520, L500.4100, L100.0500 #### [facility] [address] [place], [address] Cholesterol in LDL [Mass/Vol] 110 mg/dL Normal 0-130 [facility] Comment on above: Order Comment: Order Date: 05/04/23 Order Info: 0786 - CMP Order Info: - LIPID Order Info: 3015-05 - TSH Order Info: 2275-06 - RACHAEL Performed By: #### L 501.9985, L502.0250, L503.6550, L500.4050, L501.9520, L500.4100, L100.0500 #### [facility] [address] [place], [place], [address] Cholesterol in VLDL [Mass/Vol] 16 mg/dL Normal 5-40 [facility] Comment on above: Order Comment: Order Date: 05/04/23 Order Info: 785-03 - CMP Order Info: - LIPID Order Info: 3015-05 - TSH Order Info: 2275-06 - RACHAEL Performed By: #### L 501.9985, L502.0250, L503.6550, L500.4050, L501.9520, L500.4100, L100.0500 #### [facility] [address] [place], [place], [address] Triglyceride [Mass/Vol] 79 mg/dL Normal [facility] Comment on above: Order Comment: Order Date: 05/04/23 Order Info: 0786 - CMP Order Info: - LIPID Order Info: 3015-05 - TSH Order Info: 2275-06 - RACHAEL Result Comment: The drugs N-Acetylcysteine and Metamizole may falsely depress this assay. Serum Triglycerides Reference Interval Normal <150 mg/dL Borderline high 150 - 199 mg/dL High 200 - 499 mg/dL Very High > or = 500 mg/dL Performed By: #### L 501.9985, L502.0250, L503.6550, L500.4050, L501.9520, L500.4100, L100.0500 #### [facility] [address] [place], [place], [address] Microalb:Creat Ratio,Random URon 02-22-2024 Creatinine [Mass/Vol] 124.00 mg/dL Normal NO RAN GE EST. [facility] Comment on above: Order Comment: Order Date: 05/04/23 Order Info: [id number] - MIACRE Performed By: #### L 501.9985, L502.0250, L503.6550, L500.4050, L501.9520, L500.4100, L100.0500 #### [facility] [address] [place], [address] MALB:CRE 6.0 mg/g CRE Normal <30 mg/g CRE [facility] Comment on above: Order Comment: Order Date: 05/04/23 Order Info: 0779-1 - MIACRE Performed By: #### L 501.9985, L502.0250, L503.6550, L500.4050, L501.9520, L500.4100, L100.0500 #### [facility] [address] [place], [place], [address] MICROALBUMIN,UR 7.4 mg/L Normal NO RANGE EST. [facility] Comment on above: Order Comment: Order Date: 05/04/23 Order Info: 0779-1 - MIACRE Performed By: #### L 501.9985, L502.0250, L503.6550, L500.4050, L501.9520, L500.4100, L100.0500 #### [facility] [address] [place], [place], [address] No Panel InformationOrdered By: Annie Salcedo on 05-13-2023 Estimated GFR (MDRD) Amer 92 mL/min >60 [facility] Comment on above: GFR Calc Estimated GFR (MDRD) Non-Af Amer 76 mL/min >60 [facility] Comment on above: Non- GFR Calc Urine Microalbumin/Creatini ne Ratio 6.0 mg/g CRE <30 [facility] VLDL Cholesterol 16 mg/dL 5-40 [facility] RBC Auto (Bld) [#/Vol]Ordere d By: Annie Salcedo on 05-13-2023 RBC (Bld) [#/Vol] 4.73 10*6/uL 4.2-5.4 [facility] Serum or plasma calcium vicky urement (mass/volume)Ordered By: Annie Salcedo on 05-13-2023 Calcium [Mass/Vol] 9.6 mg/dL 8.5-10.1 [facility] Serum or plasma creatinine m easurement (mass/volume)Ordered By: Annie Salcedo on 05-13-2023 Creatinine [Mass/Vol] 0.80 mg/dL 0.55-1.02 [facility] Comment on above: The validity of the calculated GFR & GFRAA in patients over 70 years has not been determined. Clinical correlation is essential. Serum or plasma thyroid stim ulating hormone (TSH) measurement (units/volume)Ordered By: Annie Salcedo on 05-13-2023 TSH Qn 0.29 uIU/mL 0.358-3.74 [facility] Serum or plasma urea nitroge n measurement (mass/volume)Ordered By: Annie Salcedo on 05-13-2023 Urea nitrogen [Mass/Vol] 10 mg/dL 7-18 [facility] Thin prep Papanicolaou smear with manual screeningOrdered By: Annie Salcedo on 05-13-2023 Thin prep Papanicolaou smear with manual screening 3.9 g/dL 3.2-5.0 [facility] Thin prep Papanicolaou smear with manual screening 21 U/L 15-37 [facility] Thin prep Papanicolaou smear with manual screening 6 5-15 [facility] Thin prep Papanicolaou smear with manual screening 7.4 mg/L NO RANGE EST. [facility] Thyroid Stim Hormone (TSH)on 05-13-2023 TSH 0.29 uIU/mL Low 0.358-3.74 [facility] Comment on above: Order Comment: Order Date: 05/04/23 Order Info: 0786-1 - CMP Order Info: [id number] - LIPID Order Info: 3016-3 - TSH Order Info: 2276-4 - RACHAEL Performed By: #### L 501.9985, L502.0250, L503.6550, L500.4050, L501.9520, L500.4100, L100.0500 #### [facility] [place], [address] Urine creatinine measurement (mass/volume)Ordered By: Annie Salcedo on 05-13-2023 Creatinine (U) [Mass/Vol] 124.00 mg/dL NO RANGE EST. [facility] Whole blood hemoglobin A1c/t otal hemoglobin ratio (mass fraction)Ordered By: Annie Salcedo on 05-13-2023 HbA1c (Bld) [Mass fraction] 5.8 % 3.8-5.6 [facility] Comment on above: Normal < 5.7 % Predi abetic 5.7 - 6.4 % Diabetic >or= 6.5 % Please note range changes. Encounters Encounter Date Encounter Type Care Provider Facility Start: 10-07-2023 End: 10-07-2023 ambulatory Annie Salcedo Facility:[facility] Start: 09-21-2023 End: 09-21-2023 ambulatory Lex CLEMENTE Facility:[facility] Start: 06-24-2023 End: 06-24-2023 ambulatory [facility] Work Phone: Start: 06-24-2023 End: 06-24-2023 [facility] Start: 06-24-2023 End: 06-24-2023 ambulatory Annie Salcedo Facility:[facility] Start: 05-27-2023 End: 05-27-2023 ambulatory [facility] Work Phone: Start: 05-27-2023 End: 05-27-2023 [facility] Start: 05-27-2023 End: 05-27-2023 ambulatory Radha Saravia Facility:[facility] Start: 05-13-2023 End: 05-13-2023 ambulatory [facility] Work Phone: Start: 05-13-2023 End: 05-13-2023 Patient encounter procedure [facility] Work Phone: Start: 05-13-2023 End: 05-13-2023 ambulatory Annie Salcedo Facility:[facility] Procedures Date Procedure Procedure Detail Performing Clinician Start: 05-13-2023 Plain chest X-ray Payers Date Payer Category Payer Self-pay [id number] 2023 Unknown [id number] 2001 Unknown [employer] PPO [id number] Unknown COMMERCIAL OTHER [id number] Unknown [id number] Unknown [id number] Unknown [id number] Unknown [id number] Unknown [id number] Unknown [id number] Social History Date Type Detail Facility Start: 03-02-2022 End: 03-02-2022 Tobacco smoking status NHIS Unknown if ever smoked [facility] Start: 1955 Sex Assigned At Female [facility] Evaluation note Note Date & Type Note Facility Evaluation note No assessment information availa ble [facility] Work Phone: Chief Complaint and Reason for Visit Chief Complaint SOB Chief Complaint SOB EORDER Chief Complaint SOB EORDER E ORDER Advance Directives No Advanced Directives Records Found Advance Directive Response Recorded Date/ Time Living Will No March 02 12:07pm Power of [place] Sifter No March 02, 2022 12:07pm Advance Directive Response Recorded Date/ Time Living Will No March 02 022 1:07pm Power of [place] Sifter No March 02, 2022 1:07pm Summary Purpose Family History No Family History Records Found Additional Source Comments Care Teams (unrecognized sec tion and content) Team Status: Active Member Role Status Dates No Primary Care Physician Family Provider Active Annie Salcedo , DO Primary Care Provider Active Team Status: Inactive Member Role Status Dates Annie Salcedo , DO Primary Care Provi singh, Attending Provider, Referring Provider Active Team Status: Inactive Member Role Status Dates Annie Salcedo , DO Primary Care Provider Active Dr. Radha Saravia MD Attending Provider, Referring P matthew Active Goals (unrecognized section and content) Goals may be documented in a n alternate sectionGoals may be documented in an alternate sectionGoals may be documented in an alternate section INFORMATION SOURCE (unrecogn ized section and content) DATE CREATED AUTHOR 10/20/2023 [facility] FOR RECORDS PERTAINING TO PATIENTS WHO ARE OR HAVE BEEN ENROLLED IN A CHEMICAL DEPENDENCY/SUBSTANCEABUSE PROGRAM, SOME INFORMATION MAY BE OMITTED. This clinical summary was aggregated from multiple sources. Caution should be exercised in using it in the provision of clinical care. This summary normalizes information from multiple sources, and as a consequence, information in this document may materially change the coding, format and clinical context of patient data. In addition, data may be omitted in some cases. CLINICAL DECISIONS SHOULD BE BASED ON THE PRIMARY CLINICAL RECORDS. [employer] provides no warranty or guarantee of the accuracy or completeness of information in this document.
== END | disposition home or self-care (01) ==
LOC: MFPLAB 12:01
PROVIDERS: PCP Family Medicine; Referring Provider Family Medicine; Visit Provider Family Medicine
DX: I10 Essential (primary) hypertension (principal); R73.03 Prediabetes; F41.9 Anxiety disorder, unspecified; R79.89 Other specified abnormal findings of blood chemistry
CPT/HCPCS: 36415; 80053; 80061; 82306; 83036; 84439; 84443; 85025